=== PATIENT | female | born 1950 | race Asian ===

== ENCOUNTER → 2016-11-29 | Outpatient (CLI) | payer MEDICARE ==
[~2016-11-29] MED LIST: BENICAR HCT 40-1 TAB PO; CRESTOR PO; KETOPROFEN PO; ZITHROMAX PO
--- NOTE | ~2016-11-29 | MY29 ---
[facility] A Service of [facility] RADIOLOGY TEXT RESULTS PATIENT: MIMA KISER LOCATION: [facility] : 46 UNIT #: [id number] AGE: [address]: Shannan Quintana MD SEX: F ORDER DR: [id number] [facility] [address] [place], [place] [address] [id number] O MR#: [id number] Acc #: [id number] NAME: MIMA KISER : 1950 SEX: F STUDY DATE/TIME: 11/29/2016 13:51 UNIT: [facility] ROOM: STUDY DESCRIPTION: MY NANCY SCREENING W/ CAD BILAT Attending Physician: Shannan Quintana M.D. Referring Physician: Shannan Quintana M.D. Ordering Physician: Shannan Quintana M.D. Primary Care Physician: Shannan Quintana M.D. MEDICAL IMAGING REPORT This report is preliminary unless electronic signature is present EXAM Bilateral digital screening mammogram with CAD, 11/29/2016 INDICATION 66-year-old female for routine screening. No reported problems and no personal or family history of breast cancer. No surgeries. TECHNIQUE CC and MLO views of the breasts were obtained and reviewed with an FDA-approved CAD device. COMPARISON 08/20/2015, 09/03/2009 FINDINGS Breast parenchyma is composed of scattered fibroglandular densities. The pattern is unchanged. There is no new dominant nodule, mass or suspicious cluster of microcalcifications. IMPRESSION Negative screening mammogram. One year followup recommended. Patients over the age of 40 are entered into a reminder system with target due date for the next mammogram. A result letter will also be sent to the patient. BIRADS: 1 Negative Dictated by... Tyler Jo M.D. THIS IS AN ELECTRONICALLY VERIFIED REPORT Tyler Jo M.D. at 11/29/2016 5:12 PM [facility] A Service of [facility] RADIOLOGY TEXT RESULTS PATIENT: MIMA KISER [id number] : 46 UNIT #: [id number] AGE: [address]: Shannan Quintana MD SEX: F ORDER DR: ROCK/indira TD: 11/29/2016 15:11 JOB #: [id number] MEDICAL IMAGING REPORT Page 1 of 1 COPY
== END | disposition home or self-care (01) ==
LOC: CWCC 13:21
DX: Z12.31 Encounter for screening mammogram for malignant neoplasm of breast (principal)
CPT/HCPCS: G0202